=== PATIENT | female | born 1985 | race Caucasian/White ===

== ENCOUNTER 2020-09-04 09:38 | Outpatient (REF) | payer OTHER, SELFPAY ==
[2020-09-04 10:05] LABS: COVID-19 Test Negative (Negative)
== END 2020-09-04 09:39 | disposition home or self-care (01) ==
LOC: HO.EMPCOV 09:38
PROVIDERS: PCP Internal Medicine; Visit Provider Internal Medicine
DX: Z20.828 Contact with and (suspected) exposure to other viral communicable diseases (principal)
CPT/HCPCS: 87635; C9803

== ENCOUNTER 2020-09-07 11:49 | Outpatient (REF) | payer OTHER, SELFPAY ==
[2020-09-07 13:15] LABS: COVID-19 Test Negative (Negative); IDNOW Serial# 55D5AD1C
== END 2020-09-07 11:50 | disposition home or self-care (01) ==
LOC: HO.EMPCOV 11:49
PROVIDERS: PCP Internal Medicine; Visit Provider Internal Medicine
DX: Z20.828 Contact with and (suspected) exposure to other viral communicable diseases (principal)
CPT/HCPCS: 87635; C9803

== ENCOUNTER 2020-09-24 09:51 | Outpatient (REF) | payer OTHER, SELFPAY ==
[2020-09-24 10:11] LABS: COVID-19 Test Negative (Negative)
== END 2020-09-24 09:52 | disposition home or self-care (01) ==
LOC: HO.EMPCOV 09:51
PROVIDERS: Visit Provider Internal Medicine
DX: Z20.828 Contact with and (suspected) exposure to other viral communicable diseases (principal)
CPT/HCPCS: 87635; C9803

== ENCOUNTER 2020-09-28 08:28 | Outpatient (REF) | payer OTHER, SELFPAY ==
[2020-09-28 08:55] LABS: COVID-19 Test Negative (Negative)
== END 2020-09-28 08:29 | disposition home or self-care (01) ==
LOC: HO.EMPCOV 08:28
PROVIDERS: Visit Provider Internal Medicine
DX: Z20.828 Contact with and (suspected) exposure to other viral communicable diseases (principal)
CPT/HCPCS: 87635; C9803

== ENCOUNTER 2020-11-25 13:14 | Outpatient (REF) | payer OTHER, SELFPAY ==
[2020-11-25 13:37] LABS: COVID-19 Test Negative (Negative); IDNOW Serial# 55D5AD1C
== END 2020-11-25 13:15 | disposition home or self-care (01) ==
LOC: HO.LAB 13:14
PROVIDERS: Visit Provider Internal Medicine
DX: Z20.822 Contact with and (suspected) exposure to COVID-19 (principal)
CPT/HCPCS: 36415; 87635; C9803

== ENCOUNTER → 2021-01-11 08:34 | Outpatient (BNVA) | payer OTHER, SELFPAY | PROVIDERS: Visit Provider Internal Medicine | DX: N92.6 Irregular menstruation, unspecified (principal); L68.0 Hirsutism; E55.9 Vitamin D deficiency, unspecified; E04.9 Nontoxic goiter, unspecified; Z87.42 Personal history of other diseases of the female genital tract | CPT/HCPCS: 99202 ==

== ENCOUNTER 2021-01-15 07:57 | Outpatient (REF) | payer OTHER, SELFPAY ==
[2021-01-15 08:50] LABS: Estimated Average Glucose 105 mg/dL; Hemoglobin A1c % 5.3 %
[2021-01-15 08:53] LABS: Glucose Fasting 105 mg/dL (60-99)
[2021-01-15 09:00] LABS: Alanine Aminotransferase 19 U/L (0-31); Albumin Level 3.9 g/dL (3.5-5.0); Alkaline Phosphatase 91 U/L (39-117); Anion Gap 13 (12-20); Aspartate Amino Transferase 14 U/L (5-31); Bilirubin Total 0.2 mg/dL (0.0-1.0); Blood Urea Nitrogen 13 mg/dL (9-16); Calcium 8.5 mg/dL (8.4-10.2); Carbon Dioxide 24 mmol/L (22-29); Chloride 107 mmol/L (96-108); Cholesterol 163 mg/dL; Estimated Glomerular Filt Rate > 60; Glucose Random 105 mg/dL (60-115); HDL Cholesterol 49 mg/dL; LDL Cholesterol Calculated 97 mg/dl; Potassium 4.2 mmol/L (3.3-5.1); Sodium 140 mmol/L (135-145); Triglycerides 88 mg/dL
[2021-01-15 09:22] LABS: Free T4 (Free Thyroxine) 0.93 ng/dL (0.71-1.85); HCG Quantitative < 2 mIU/mL; Vitamin D 25-OH Total 15.9 ng/mL (>30)
[2021-01-15 10:33] LABS: Glucose 1 Hour 159 mg/dL
[2021-01-15 11:22] LABS: Glucose 2 Hour 106 mg/dL
[2021-01-16 10:31] LABS: Follicle Stimulating Hormone 7.1 mIU/mL; Lutenizing Hormone 3.1 mIU/mL; Prolactin 9.1 ng/mL
[2021-01-16 10:57] LABS: LDL Cholesterol Direct 105 mg/dL (<100)
[2021-01-18 21:16] LABS: DHEA Sulfate 223 mcg/dL (23-266); Sex Hormone Binding Globulin 25 nmol/L (17-124)
[2021-01-18 23:41] LABS: Adrenocorticotropic Hormone 12 pg/mL (6-50)
[2021-01-19 18:47] LABS: Estradiol Ultra Sensitive 26 pg/mL
[2021-01-20 17:52] LABS: Testosterone, Free 4.1 pg/mL (0.1-6.4); Testosterone, Total 25 ng/dL (2-45)
[2021-01-20 19:27] LABS: Androstenedione 81 ng/dL
[2021-01-21 14:16] LABS: Estradiol Free 0.63 pg/mL; Estradiol, Ultrasensitive 27 pg/mL
== END 2021-01-15 07:58 | disposition home or self-care (01) ==
LOC: HO.LAB 07:57
PROVIDERS: PCP Internal Medicine; Visit Provider Internal Medicine
DX: N92.6 Irregular menstruation, unspecified (principal); E55.9 Vitamin D deficiency, unspecified
CPT/HCPCS: 36415; 80053; 80061; 82024; 82157; 82306; 82533; 82627; 82670; 82681; 83001; 83002; 83036; 83498; 83721; 84146; 84270; 84402; 84403; 84439; 84443; 84702

== ENCOUNTER 2021-01-26 09:06 | Outpatient (REF) | payer OTHER, SELFPAY ==
--- NOTE | ~2021-01-26 | US_ITS ---
EXAMINATION: US THYROID CLINICAL INFORMATION: Vitamin D deficiency, unspecified COMPARISON: None TECHNIQUE: Linear transducer grayscale and color Doppler examination with attention to the region of the thyroid. FINDINGS: SIZE: Measurements of the thyroid lobes and nodules are given in sagittal, anteroposterior and transverse dimensions respectively. Right Thyroid Lobe: 5.7 x 1.8 x 2.5 cm, volume 13 mL. Parenchyma: The gland echotexture is homogeneous. Thyroid vascularity is normal. Left Thyroid Lobe: 4.5 x 1.9 x 2 cm, volume 8.8 mL. Parenchyma: The gland echotexture is homogeneous. Thyroid vascularity is normal. Isthmus: 0.4 cm in maximum AP dimension. No focal thyroid nodule is seen. NODES: No lymphadenopathy is seen in the tissue surrounding the thyroid gland. US/US thyroid IMPRESSION: Homogeneous thyroid gland demonstrating normal vascularity. No discrete thyroid nodules visualized.
== END 2021-01-26 09:07 | disposition home or self-care (01) ==
LOC: HO.US 09:06
PROVIDERS: Visit Provider Internal Medicine
DX: E04.9 Nontoxic goiter, unspecified (principal); E55.9 Vitamin D deficiency, unspecified
CPT/HCPCS: 76536

== ENCOUNTER → 2021-03-08 07:55 | Outpatient (BNVA) | payer OTHER, SELFPAY | PROVIDERS: Visit Provider Internal Medicine ==

== ENCOUNTER 2021-04-02 07:54 | Outpatient (REF) | payer OTHER, SELFPAY ==
[2021-04-05 22:46] LABS: Adrenocorticotropic Hormone <5 pg/mL (6-50)
[2021-04-06 15:17] LABS: Dexamethasone 463 ng/dL
== END 2021-04-02 07:55 | disposition home or self-care (01) ==
LOC: HO.LAB 07:54
PROVIDERS: Visit Provider Internal Medicine
DX: L68.0 Hirsutism (principal)
CPT/HCPCS: 36415; 80299; 82024; 82533

== ENCOUNTER → 2021-04-14 10:56 | Outpatient (BNVA) | payer OTHER, SELFPAY | PROVIDERS: Visit Provider Internal Medicine ==

== ENCOUNTER 2022-06-02 12:55 | Outpatient (REF) | payer OTHER, SELFPAY ==
--- NOTE | ~2022-06-02 | US_ITS ---
EXAMINATION: US LOWER EXTREMITY VENOUS (REFLUX EXAM), BILATERAL CLINICAL INDICATION: Chronic venous insufficiency with bilateral extremity varicose veins COMPARISON: Ultrasound from 06/11/2019 TECHNIQUE: Color flow triplex imaging and compression Doppler was performed to evaluate both the deep and the superficial systems bilaterally. To evaluate the superficial system, the examination was performed in the upright position. Color-flow Doppler ultrasound and compression ultrasound were utilized. In addition, maneuvers were utilized to demonstrate reflux. FINDINGS: 1. DEEP VENOUS ULTRASOUND OF THE RIGHT LOWER EXTREMITY: Common Femoral Vein: Compressible, normal respiratory variation and augmented flow. Femoral Vein: Compressible, normal color flow and augmentation. Popliteal Vein: Compressible, normal augmentation. Deep Reflux: There is no evidence of reflux in the deep system in either the common femoral vein or the popliteal vein. There is no evidence of a Feliciano's cyst. 2. SUPERFICIAL ULTRASOUND WITH DOPPLER OF RIGHT LOWER EXTREMITY: GREAT SAPHENOUS VEIN: Saphenofemoral Junction: 0.7 cm; Reflux: 0 ms Proximal Thigh: 0.5 cm; Reflux: 0 ms Mid Thigh: 0.3 cm; Reflux: 1156 ms Above Knee: 0.3 cm; Reflux: 0 ms At Knee: 0.3 cm; Reflux: 0 ms Below Knee: 0.4 cm; Reflux: 0 ms Mid Calf: 0.3 cm; Reflux: 0 ms Ankle: 0.3 cm; Reflux: 0 ms DUPLICATED MEDIAL GREAT SAPHENOUS VEIN: Diameter: None Imaged Reflux: NA DUPLICATED LATERAL GREAT SAPHENOUS VEIN: Diameter: None Imaged Reflux: NA SMALL SAPHENOUS VEIN: Proximal: 0.4 cm; Reflux: 0 ms Distal: 0.2 cm; Reflux: 0 ms VEIN OF GIACOMINI: None Imaged. PERFORATORS: Location: None Imaged Size: NA Reflux: NA VARICOSITIES: Location: None Imaged Size: NA Reflux: NA 3. DEEP VENOUS ULTRASOUND OF THE LEFT LOWER EXTREMITY: Common Femoral Vein: Compressible, normal respiratory variation and augmented flow. Femoral Vein: Compressible, normal color flow and augmentation. Popliteal Vein: Compressible, normal augmentation. Deep Reflux: There is no evidence of reflux in the deep system in either the common femoral vein or the popliteal vein. There is no evidence of a Feliciano's cyst. 4. SUPERFICIAL ULTRASOUND WITH DOPPLER OF LEFT LOWER EXTREMITY: GREAT SAPHENOUS VEIN: Saphenofemoral Junction: 0.9 cm; Reflux: 0 ms Proximal Thigh: 0.5 cm; Reflux: 0 ms Mid Thigh: 0.4 cm; Reflux: 488 ms Above Knee: 0.4 cm; Reflux: 0 ms At Knee: 0.3 cm; Reflux: 0 ms Below Knee: 0.2 cm; Reflux: 0 ms Mid Calf: 0.3 cm; Reflux: 0 ms Ankle: 0.3 cm; Reflux: 0 ms DUPLICATED MEDIAL GREAT SAPHENOUS VEIN: Diameter: 0.6 cm Reflux: None DUPLICATED LATERAL GREAT SAPHENOUS VEIN: Diameter: None Imaged Reflux: NA SMALL SAPHENOUS VEIN: Proximal: 0.2 cm; Reflux: 0 ms Distal: 0.2 cm; Reflux: 0 ms VEIN OF GIACOMINI: None Imaged. PERFORATORS: Location: None Imaged Size: NA Reflux: NA VARICOSITIES: Location: Proximal thigh Size: 0.3 cm Reflux: NA US/US venous duplex LE BI IMPRESSION: Right: No significant reflux in the right lower extremity except for a focal area of moderate reflux in the great saphenous vein which is unlikely to be clinically significant Left: No significant reflux in the left lower extremity
== END 2022-06-02 12:56 | disposition home or self-care (01) ==
LOC: HO.US 12:55
PROVIDERS: Visit Provider Surgery Vascular Surgery
DX: I83.893 Varicose veins of bilateral lower extremities with other complications (principal)
CPT/HCPCS: 93970

== ENCOUNTER 2023-08-02 08:13 | Outpatient (AMB) | payer OTHER, SELFPAY ==
--- NOTE | 2023-08-02 08:14 | MHC.OFFVIS ---
Intake Vital Signs 08/02/23 08:22 Height 5 ft 7 in Weight 244 lb 7.882 oz BMI 38.3 BP 114/66 Blood Pressure Location Rt brachial Position Sitting Pulse 87 Pulse Source Pulse Oximeter Temp 97.3 F Temp Source Skin Pulse Oximetry (%) 99 Oxygen Delivery Method Room Air Intake Visit Reasons: FM Intake Note: New patient presenting today for fibromyalgia. 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 The condition started over the last year. She stated that she has had aches and pains for a long period of time but recently they have become worse. She had some stressors in her life recently that she believes contributed to her symptoms. The majority of her pain is in her arm, upper back, neck. Intermittently she gets an electric shock-like sensation in her elbows, with certain positions. Patient sometimes sleeps 8 hours at night but wakes up fatigued. Sometimes she gets the urge to move her legs. She denies any swollen joints. She is unaware of any family history of an autoimmune rheumatic disease. [facility] Medical History (Updated 08/02/23 @ 08:55 by Bridgett Bang MD) Acute allergic rhinitis Iron deficiency anemia, unspecified PCOS (polycystic ovarian syndrome) Impaired glucose tolerance Prediabetes Obesity Goiter Vitamin D deficiency History of abnormal cervical Pap smear Irregular menses Hirsutism Surgical History Hx of eye surgery Hx of tubal ligation Family History Father Type 2 diabetes mellitus Hypertension COPD (chronic obstructive pulmonary disease) Mother Type 2 diabetes mellitus Maternal Grandmother Type 2 diabetes mellitus Heart disease Breast cancer Paternal Grandmother Alzheimer's dementia Social History Household Members: Significant Other and Children Alcohol intake: current Alcohol intake frequency: a few times a month Patient Tobacco Use Status: Never used Tobacco Current occupational status: employed 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 Female Reproductive History Menstrual Total pregnancies: 3 Number of Living Children: 2 Ab spontaneous: 1 Review of Systems Const Reports fatigue, Reports headache(s) and Reports weakness Eyes Reports diplopia ENT Reports dizziness and Reports headache(s) Card Reports chest pain and Reports dyspnea Resp Reports dyspnea GI Reports constipation Musc Reports arthralgias, Reports muscle weakness and Reports stiffness Neuro Reports dizziness, Reports headache(s), Reports memory loss, Reports restless legs and Reports weakness Psych Reports anxiety and Reports memory loss Endo Reports fatigue Physical Exam Vital Signs: Last Vital Signs Temp 97.3 F 08/02/23 08:22 Pulse 87 08/02/23 08:22 BP 114/66 08/02/23 08:22 Pulse Ox 99 08/02/23 08:22 Oxygen Delivery Method Room Air 08/02/23 08:22 BMI result Body Mass Index 38.3 Const General: cooperative, healthy appearing and comfortable Nutritional Appearance: obese Orientation/consciousness: patient oriented x3 Limitations: no limitations HEENT Head: Yes normocephalic and Yes atraumatic Mouth: moist mucous membranes Resp Effort & Inspection: normal respiratory effort and able to speak in complete sentences Auscultation: clear to auscultation bilaterally Cardio Rate: regular rate Rhythm: regular rhythm Heart sounds: S1 normal heart sound present GI Inspection: No distended Palpation (GI): Soft to palpation and nontender Skin General skin exam: no rashes or lesions noted Neuro General: patient oriented x3 Extrem Other: No fibromyalgia tender points today No active synovitis Normal nailfold capillaroscopy Normal range of motion of hands, fingers, wrists, elbows and shoulders without pain Negative straight leg raise test Results Reviewed Results Reviewed: Labs 06/2023 RF/MARIYA negative ESR 10 Lyme screen negative Assessment & Plan Assessment & Plan (1) Fibromyalgia, primary: Code(s): M79.7 - Fibromyalgia Plan: This is a 37-year-old female who presents for evaluation of diffuse pain. I do not see any evidence of an autoimmune rheumatic disease upon my evaluation. Clinical picture consistent with fibromyalgia Discussed management of fibromyalgia with patient. Is a noninflammatory, non-autoimmune central afferent processing disorder leading to a diffuse pain syndrome. I suggested that patient try to address her underlying psychiatric issues, anxiety/depression. Patient sees a therapist once a month. I suggested weekly or ever other week evaluation. Consider evaluation by psychiatrista. Discussed a referral for sleep study by her PCP to evaluate for EYAD. Try to follow sleep hygiene practices. Patient would benefit from increased physical activity, patient walks about 20 minutes daily. Advised patient to continue walking, she likes to do Hilario which I suggested she does regularly. Follow-up in 4 months (2) Iron deficiency anemia, unspecified: Code(s): D50.9 - Iron deficiency anemia, unspecified Qualifiers: Iron deficiency anemia type: chronic blood loss Qualified Code(s): D50.0 - Iron deficiency anemia secondary to blood loss (chronic) Plan: I explained to patient that iron deficiency anemia can sometimes lead to restless legs syndrome which can affect her sleep and contribute to her fibromyalgia symptoms. Follow-up with PCP Plan I spent 46 minutes reviewing patient's chart, evaluating patient, counseling patient and documenting in the chart Coding Level of Care Code New Pt Level 4 (18406) Diagnoses Fibromyalgia, primary M79.7 Iron deficiency anemia due to chronic blood loss D50.0 Iron deficiency anemia type: chronic blood loss
[2023-08-02 08:22] VITALS: BP 114/66; PULSE 87; TEMP 36.3; O2SAT 99; BMI 38.3
== END 2023-08-02 08:55 | disposition home or self-care (01) ==
PROVIDERS: PCP Internal Medicine; Visit Provider Student in an Organized Health Care Education/Training Program
DX: M79.7 Fibromyalgia (principal); D50.0 Iron deficiency anemia secondary to blood loss (chronic)
CPT/HCPCS: 99204

== ENCOUNTER → 2023-08-02 08:13 | Outpatient (BNVA) | payer OTHER, SELFPAY | PROVIDERS: PCP Internal Medicine; Visit Provider Student in an Organized Health Care Education/Training Program ==

== ENCOUNTER → 2023-09-25 12:31 | Outpatient (BNVA) | payer OTHER, SELFPAY | PROVIDERS: PCP Internal Medicine; Visit Provider Physician Assistant Medical | DX: Z13.89 Encounter for screening for other disorder (principal) | CPT/HCPCS: 99203 ==

== ENCOUNTER 2023-09-27 08:16 | Outpatient (AMB) | payer OTHER, SELFPAY ==
--- NOTE | 2023-09-27 08:20 | A.OFFVIS_ITS ---
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 Reports soreness and increase of pain. Seen at work connection where she was given a aircast. Currently states pain and swelling has improved. 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 She was seen at work [facility] where she was given a air cast. She states she has swelling, soreness and worsening pain in her foot. Her pain and swelling have currently improved. 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 [facility] Medical History (Updated 09/27/23 @ 10:39 by Vesna Lomeli PA-C) Acute allergic rhinitis Iron deficiency anemia, unspecified PCOS (polycystic ovarian syndrome) Impaired glucose tolerance Prediabetes Obesity Goiter Vitamin D deficiency History of abnormal cervical Pap smear Irregular menses Hirsutism Surgical History Hx of eye surgery Hx of tubal ligation Family History Father Type 2 diabetes mellitus Hypertension COPD (chronic obstructive pulmonary disease) Mother Type 2 diabetes mellitus Maternal Grandmother Type 2 diabetes mellitus Heart disease Breast cancer Paternal Grandmother Alzheimer's dementia Social History (Updated 09/27/23 @ 08:44 by LUI SE Perales) Household Members: Significant Other and Children Alcohol intake: current Alcohol intake frequency: a few times a month Patient Tobacco Use Status: Never used Tobacco Current occupational status: employed 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 Review of Systems Const All systems reviewed & are unremarkable except as noted in HPI and below Physical Exam Vital Signs: BMI result Body Mass Index 38.2 Const General: cooperative, healthy appearing, comfortable, no acute distress, well developed and alert Orientation/consciousness: patient oriented x3 HEENT Head: Yes normal to inspection, Yes normocephalic and Yes atraumatic Eyes General: appearance normal, both eyes and all related structures Resp Effort & Inspection: normal respiratory effort and able to speak in complete sentences Cardio Rate: regular rate Peripheral pulses: Peripheral pulses 2+ throughout GI Palpation (GI): Soft to palpation Skin Lesions: no lesions Rashes: no rashes Neuro General: patient oriented x3 Extrem Other: Left foot: Normal to inspection. Mild swelling over lateral aspect of the foot which extends to the top of foot with tenderness to palpation. She has full ROM of ankle without pain or crepitus. No tenderness or pain over medial or latera malleolus. No pain along the syndesmosis. NVI. Results Reviewed Results Reviewed: x Assessment & Plan Assessment & Plan (1) Sprain of foot, left: Code(s): S93.602A - Unspecified sprain of left foot, initial encounter Qualifiers: Encounter type: initial encounter Qualified Code(s): S93.602A - Unspecified sprain of left foot, initial encounter Plan She was placed in a short boot weight bearing as tolerated which she will wear for the next 2-3 weeks to help with pain. I encouraged her to come out of the boot for gentle ROM exercises. She can remove the boot for hygiene and sleeping. She will begin physical therapy over the next 2 weeks to work on gentle ROM, strengthening and proprioceptive training. She will remain out of work till October 02 at which point she can return on light duty which would consist of no continuous standing. I would like to see her back in 6 weeks for a follow-up, sooner if needed. Orders: Orders PT Evaluation and Treatment Today S93.602A - Unspecified sprain of left foot, initial encounter Patient Instructions: Scribed for Vesna Lomeli PA-C, by Derrell Lynne product manager medical device, on 09/27/2023 at 8:30 AM EST. I, Vesna Lomeli PA-C, have personally reviewed and agree with the information entered by the scribe. Coding Level of Care Code New Pt Level 3 (99748) Diagnoses Sprain of left foot, initial encounter S93.602A Encounter type: initial encounter
[2023-09-27 08:30] VITALS: BMI 38.2
== END 2023-09-27 09:23 | disposition home or self-care (01) ==
PROVIDERS: PCP Internal Medicine; Visit Provider Physician Assistant
DX: S93.602A Unspecified sprain of left foot, initial encounter (principal)
CPT/HCPCS: 99203

== ENCOUNTER → 2023-09-27 08:16 | Outpatient (BNVA) | payer OTHER, SELFPAY | PROVIDERS: PCP Internal Medicine; Visit Provider Physician Assistant | DX: S93.602A Unspecified sprain of left foot, initial encounter (principal) | CPT/HCPCS: 99202 ==

== ENCOUNTER → 2023-09-29 11:19 | Outpatient (BNVA) | payer OTHER, SELFPAY | PROVIDERS: PCP Internal Medicine; Visit Provider Physician Assistant | DX: Z13.89 Encounter for screening for other disorder (principal) | CPT/HCPCS: 99213 ==

== ENCOUNTER → 2023-10-30 10:19 | Outpatient (BNVA) | payer OTHER, SELFPAY | PROVIDERS: PCP Internal Medicine; Visit Provider Internal Medicine | DX: Z13.89 Encounter for screening for other disorder (principal) | CPT/HCPCS: 99213 ==

== ENCOUNTER 2023-11-06 14:55 | Outpatient (AMB) | payer OTHER, SELFPAY ==
--- NOTE | 2023-11-06 15:23 | A.OFFVIS_ITS ---
Intake Vital Signs 11/06/23 15:24 Height 5 ft 7 in Weight 253 lb BMI 39.6 BP 128/76 Blood Pressure Location Rt brachial Position Sitting Intake Visit Reasons: ENP-Forgetfulness/Memory changes x2 yrs/Migraine-C Intake Note: Patient presents for forgetfulness,memory and migraines. I've always had migraines on and off for years,the forgetfulness have gotten more noticeable for the past 2 years mid conversation I forget what I was going to say. Allergies No Known Allergies Allergy (Verified 11/06/23 15:29) Medication List - Last Reconciled 11/06/23 by ANTHONY De Leon ergocalciferol (vitamin D2) 1,250 mcg PO QWEEK ferrous sulfate 325 mg PO DAILY ibuprofen 800 mg PO TID PRN HPI HPI Comments History of Present Illness Details Right-handed 38-yr-old female presents for new pt evaluation of cognitive difficulties and headaches. She reports that she has had worsening cognitive difficulties over the past 2 yrs. She notes that she is losing her train of thought mid-sentence. She needs to write everything down so she does not forget to do it. Often second guesses if she has done something- ie turning the light or roofer helper vinyl coating off. She is having difficulty recalling long-term memories- such as when her 18 yo old son was younger. She can space out at times. 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 She is not overly active- does take daily walks on her lunch break. She is prone to forgetting to pay her bills- now puts everything on auto-pay. She is prone to procrastination, at least since young adulthood. Prone to being late- has a tendency to drive fast when late- has had traffic citation for this. Prone to misplacing things. Generally denies risk taking behaviors. She recalls spacing out when listening to her teachers talk when in school- hearing them but not absorbing the info. Now this happens while reading. Sleeps ok- can wake up at times to void/drink and have difficulties getting back to sleep. Usually ready for bed by 8pm, but can wake up unrefreshed. Does snore. Endorses excessive daytime sleepiness. She does have RLS- legs start jumping, tingling, restlessness, has to get up, creepy crawling sensation, leg cramps. She has depression and anxiety- feels well-controlled. Was seeing a therapist- was worse in early 2022 d/t stress. Pt reports normal gestational and early development. She states she was a good student. Completed high school and a MA program. She is anxious about this as she has a family history of AD- her mother tells her 59 yo father does put things in places they do not go, but does not have a cognitive d/o dx, her paternal grandmother had AD- unsure of age but maybe older onset; her paternal grandfather- dx'd w/ dementia (un-sure of specific sub-type) in [place] at age 87-88 yo- still alive. She also endorses Fibromyalgia, PCOS, some constipation/diarrhea. Denies h/o significant neck/back issues, concussions, resp d/o, CV d/o, coagulationd/o, seizure. Headache questionnaire: Typical headache characteristics: Prodrome symptoms? Unsure Aura? Blurry, double vision, snow flurries- before and during the headache. Location, quality, characteristics? Dull headache in top of head. Occasional temporal pain. Pain intensity? Mild-mod. In the past, was severe. Associated symptoms? photophobia, phonophobia, nausea, sometimes vomiting, allodynia, brain fog, activity intolerance. Focal weakness, Parethesias, Autonomic s/s? bilateral eye droop. Postdrome? Lingers some. Triggers? Stress Any positional, valsalva, exertional, sexual activity triggers? none Menstrual triggers? can have headache just before her menses- menses is regular. Time of day? no specific time of day- but often notices at work Duration? 1-2 days Frequency? 1-2, at most 3-4 days of mild-mod attacks per week, last severe attack was > 6 months ago. How does headache impact your life? tries not to miss work- work tries to accommodate by reducing light exposure. Current acute medication use/interventions: Rarely Naproxen or Zofran 4mg ODT tab. Previous acute medication use: Sumatriptan- unsure of effect Current preventative medication use: None Previous preventative medication use: Unsure Non-pharmacological interventions: Puts her head down. Family planning? None- s/p tubal ligation. Family history of migraine or other headache disorder? dtr has migraine [facility] Medical History (Updated 11/06/23 @ 17:10 by ANTHONY De Leon) Acute allergic rhinitis Iron deficiency anemia, unspecified PCOS (polycystic ovarian syndrome) Impaired glucose tolerance Prediabetes Obesity Goiter Vitamin D deficiency History of abnormal cervical Pap smear Irregular menses Hirsutism Surgical History Hx of eye surgery Hx of tubal ligation Family History Father Type 2 diabetes mellitus Hypertension COPD (chronic obstructive pulmonary disease) Mother Type 2 diabetes mellitus Maternal Grandmother Type 2 diabetes mellitus Heart disease Breast cancer Paternal Grandmother Alzheimer's dementia Social History Household Members: Significant Other and Children Alcohol intake: current Alcohol intake frequency: a few times a month Patient Tobacco Use Status: Never used Tobacco Current occupational status: employed 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 Mallampatti stae IV Large Tonsils Head: Yes normocephalic Resp Effort & Inspection: normal respiratory effort and able to speak in complete sentences Neuro General: patient oriented x3 Cranial nerves: Yes CN's II-XII intact bilaterally Cognition (Neuro): normal cognition Gait exam (Neuro): Normal gait present Motor exam (neuro): 5/5 motor strength present throughout Deep tendon reflexes (DTR's): Right triceps reflex intensity grade: 2+, Left triceps reflex intensity grade: 2+, Rt Biceps (C5, C6): 2+, Left biceps reflex intensity grade: 2+, Right brachioradialis reflex intensity grade: 2+, Left brachioradialis reflex intensity grade: 2+, Right patellar reflex intensity grade: 2+ and Left patellar reflex intensity grade: 2+ Coordination: [id number] test normal Pupils: Normal pupillary reactivity/response: bilateral Psych Appearance: grossly normal Mental Status: mental status grossly normal Speech and movement: Normal speech and movement present Affect: normal affect Attitude: cooperative Thought process: Normal thought process present Assessment & Plan Assessment & Plan (1) Cognitive dysfunction: Code(s): F09 - Unspecified mental disorder due to known physiological condition (2) Iron deficiency anemia, unspecified: Code(s): D50.9 - Iron deficiency anemia, unspecified Qualifiers: Iron deficiency anemia type: chronic blood loss Qualified Code(s): D50.0 - Iron deficiency anemia secondary to blood loss (chronic) (3) Headache: Code(s): R51.9 - Headache, unspecified (4) Diplopia: Code(s): H53.2 - Diplopia (5) Ptosis, bilateral: Code(s): H02.403 - Unspecified ptosis of bilateral eyelids (6) Excessive daytime sleepiness: Code(s): G47.19 - Other hypersomnia (7) Sleep difficulties: Code(s): G47.9 - Sleep disorder, unspecified (8) Snoring: Code(s): R06.83 - Snoring (9) RLS (restless legs syndrome): Code(s): G25.81 - Restless legs syndrome Plan Cognitiove difficulties may be multi-factorial. Patient is advised to undergo: Labs to assess for secondary etiologies of cognitive dysfunction, headaches, the ptosis, diplopia, and restless leg symptoms HST to assess for sleep apnea Brain MRI with and without contrast to assess for secondary etiologies of cognitive dysfunction, bilateral ptosis, diplopia EEG to assess for epileptic activity Upon review, consider referral for psychiatric eval for ? undiagnosed ADD vs mood d/o impact on cognition. For overall headache management: Discussed importance of good self-care, including but not limited to maintaining a healthy diet, adequate fluid intake, adequate sleep, and engaging in regular physical activity. For headache triggers: Track headaches. For acute headache treatment: Discussed importance of taking acute medications at the first sign of headache, however stressed importance of avoiding acute medication overuse (especially with combined headache medications). Trial Sumatriptan 100mg tab, 1/2 - 1 tab (50-100mg) at onset of headache, may repeat in 2 hours. Max of 2 tabs (200mg) per 24 hours. May adjunct with OTC Naproxen liquigels 440mg q 12 hrs prn. Reviewed potential adverse effects of triptans, including but not limited to nausea, fatigue, chest tightness/tingling (usually passes within a few minutes), medication overuse headaches. Previous acute migraine medication trials: Unsure Acute migraine medication contraindications: None at this time For headache prevention medication: Start Riboflavin 400mg qam Start Magnesium 400mg qhs Previous migraine prevention medication trials: None Migraine prevention medication contraindications: None Pt to follow-up in 2 months or sooner prn. Orders: Orders TSH reflex Free T4 Today D50.9 - Iron deficiency anemia, unspecified, E66.9 - Obesity, unspecified, H02.403 - Unspecified ptosis of bilateral eyelids, H53.2 - Diplopia, R51.9 - Headache, unspecified, R73.02 - Impaired glucose tolerance (oral) MARIYA Reflex Titer and Pattern Today D50.9 - Iron deficiency anemia, unspecified, E66.9 - Obesity, unspecified, H02.403 - Unspecified ptosis of bilateral eyelids, H53.2 - Diplopia, R51.9 - Headache, unspecified, R73.02 - Impaired glucose tolerance (oral) Methylmalonic Acid Today D50.9 - Iron deficiency anemia, unspecified, E66.9 - Obesity, unspecified, H02.403 - Unspecified ptosis of bilateral eyelids, H53.2 - Diplopia, R51.9 - Headache, unspecified, R73.02 - Impaired glucose tolerance (oral) Erythrocyte Sedimentation Rate Today D50.9 - Iron deficiency anemia, unspecified, E66.9 - Obesity, unspecified, H02.403 - Unspecified ptosis of bilateral eyelids, H53.2 - Diplopia, R51.9 - Headache, unspecified, R73.02 - Impaired glucose tolerance (oral) Acetylcholine Recept. Blocking Today D50.9 - Iron deficiency anemia, unspecified, E66.9 - Obesity, unspecified, H02.403 - Unspecified ptosis of bilateral eyelids, H53.2 - Diplopia, R51.9 - Headache, unspecified, R73.02 - Impaired glucose tolerance (oral) Acetylcholine Trading Specialist Modulating Today D50.9 - Iron deficiency anemia, unspecified, E66.9 - Obesity, unspecified, H02.403 - Unspecified ptosis of bilateral eyelids, H53.2 - Diplopia, R51.9 - Headache, unspecified, R73.02 - Impaired glucose tolerance (oral) Hemoglobin A1c Today D50.9 - Iron deficiency anemia, unspecified, E66.9 - Obesity, unspecified, H02.403 - Unspecified ptosis of bilateral eyelids, H53.2 - Diplopia, R51.9 - Headache, unspecified, R73.02 - Impaired glucose tolerance (oral) Ferritin Today D50.9 - Iron deficiency anemia, unspecified, E66.9 - Obesity, unspecified, H02.403 - Unspecified ptosis of bilateral eyelids, H53.2 - Diplopia, R51.9 - Headache, unspecified, R73.02 - Impaired glucose tolerance (oral) Creatine Kinase Total Today D50.9 - Iron deficiency anemia, unspecified, E66.9 - Obesity, unspecified, H02.403 - Unspecified ptosis of bilateral eyelids, H53.2 - Diplopia, R51.9 - Headache, unspecified, R73.02 - Impaired glucose tolerance (oral) EEG electroencephalogram Today F09 - Unspecified mental disorder due to known physiological condition RT home sleep study Today G47.19 - Other hypersomnia, G47.9 - Sleep disorder, unspecified, R06.83 - Snoring Vitamin B12 and Folate Today D50.9 - Iron deficiency anemia, unspecified, E66.9 - Obesity, unspecified, H02.403 - Unspecified ptosis of bilateral eyelids, H53.2 - Diplopia, R51.9 - Headache, unspecified, R73.02 - Impaired glucose tolerance (oral) Rheumatoid Factor Today D50.9 - Iron deficiency anemia, unspecified, E66.9 - Obesity, unspecified, H02.403 - Unspecified ptosis of bilateral eyelids, H53.2 - Diplopia, R51.9 - Headache, unspecified, R73.02 - Impaired glucose tolerance (oral) Complete Blood Count Auto Diff Today D50.9 - Iron deficiency anemia, unspecified, E66.9 - Obesity, unspecified, H02.403 - Unspecified ptosis of bilateral eyelids, H53.2 - Diplopia, R51.9 - Headache, unspecified, R73.02 - Impaired glucose tolerance (oral) Comprehensive Met. Panel Today D50.9 - Iron deficiency anemia, unspecified, E66.9 - Obesity, unspecified, H02.403 - Unspecified ptosis of bilateral eyelids, H53.2 - Diplopia, R51.9 - Headache, unspecified, R73.02 - Impaired glucose tolerance (oral) Homocysteine Today D50.9 - Iron deficiency anemia, unspecified, E66.9 - Obesity, unspecified, H02.403 - Unspecified ptosis of bilateral eyelids, H53.2 - Diplopia, R51.9 - Headache, unspecified, R73.02 - Impaired glucose tolerance (oral) Acetylcholine Receptor Binding Today D50.9 - Iron deficiency anemia, unspecified, E66.9 - Obesity, unspecified, H02.403 - Unspecified ptosis of bilateral eyelids, H53.2 - Diplopia, R51.9 - Headache, unspecified, R73.02 - Impaired glucose tolerance (oral) IRON PROFILE Today D50.9 - Iron deficiency anemia, unspecified, E66.9 - Obesity, unspecified, H02.403 - Unspecified ptosis of bilateral eyelids, H53.2 - Diplopia, R51.9 - Headache, unspecified, R73.02 - Impaired glucose tolerance (oral) CRP High Sensitivity Today D50.9 - Iron deficiency anemia, unspecified, E66.9 - Obesity, unspecified, H02.403 - Unspecified ptosis of bilateral eyelids, H53.2 - Diplopia, R51.9 - Headache, unspecified, R73.02 - Impaired glucose tolerance (oral) MR head/brain wo/w con Today F09 - Unspecified mental disorder due to known physiological condition, H02.403 - Unspecified ptosis of bilateral eyelids, H53.2 - Diplopia, R51.9 - Headache, unspecified Medications: New sumatriptan succinate (0.5 - 1 x 100 mg) 50 - 100 mg orally at onset of headache, may repeat in 2 hrs PRN; max 2 tabs per day or 4 tabs/week (may take with Naproxen) 30 days 12 tabs 6RF migraine headache riboflavin (vitamin B2) 400 mg PO DAILY 30 days 30 tabs 6RF magnesium oxide may hold for loose stools 400 mg PO BEDTIME 30 days 30 tabs 6RF ondansetron 4 - 8 mg (1 - 2 x 4 mg) PO Q6-8H 30 days PRN 30 tabs 1RF nausea and vomiting MDD 4 tabs Coding Level of Care Code New Pt Level 4 (44596) Diagnoses Cognitive dysfunction F09 Iron deficiency anemia due to chronic blood loss D50.0 Iron deficiency anemia type: chronic blood loss Headache R51.9 Diplopia H53.2 Ptosis, bilateral H02.403 Excessive daytime sleepiness G47.19 Sleep difficulties G47.9 Snoring R06.83 RLS (restless legs syndrome) G25.81
[2023-11-06 15:24] VITALS: BP 128/76; BMI 39.6
== END 2023-11-06 16:00 ==
PROVIDERS: PCP Internal Medicine; Visit Provider Nurse Practitioner Family
DX: R41.89 Other symptoms and signs involving cognitive functions and awareness (principal); D50.0 Iron deficiency anemia secondary to blood loss (chronic); R51.9 Headache, unspecified; H53.2 Diplopia; H02.403 Unspecified ptosis of bilateral eyelids; G47.19 Other hypersomnia; G47.9 Sleep disorder, unspecified; R06.83 Snoring; G25.81 Restless legs syndrome
CPT/HCPCS: 99204

== ENCOUNTER → 2023-11-06 14:55 | Outpatient (BNVA) | payer OTHER, SELFPAY | PROVIDERS: PCP Internal Medicine; Visit Provider Nurse Practitioner Family ==

== ENCOUNTER 2023-11-08 09:31 | Outpatient (AMB) | payer OTHER, SELFPAY ==
--- NOTE | 2023-11-08 09:37 | MHC.OFFVIS ---
Intake Vital Signs 11/08/23 09:40 Height 5 ft 7 in Weight 253 lb BMI 39.6 Intake Visit Reasons: OV-f/u left foot sprain-follow up Intake Note: Charlene a 38 year old female presents today for a follow up of left foot sprain. Patient reports pain has improved, states she she started PT last week due to office rescheduling. Occasional stiffness, soreness, and tingling. She will use an bridgett wrap prn. States not needing ibuprofen for the past 2 weeks. Allergies No Known Allergies Allergy (Verified 11/08/23 09:44) HPI OV-f/u left foot sprain-follow up HPI Details 38-year-old female who returns to the office today for a follow-up of left foot pain. She states she has improvement in her pain but she does c/o occasional stiffness soreness and tingling sensation in her foot. Her pain is aggravated with putting on shoes. She has started physical therapy last week. She uses an bridgett wrap as needed. She has not taken ibuprofen for the past 2 weeks. [facility] Medical History (Updated 11/06/23 @ 17:10 by ANTHONY De Leon) Acute allergic rhinitis Iron deficiency anemia, unspecified PCOS (polycystic ovarian syndrome) Impaired glucose tolerance Prediabetes Obesity Goiter Vitamin D deficiency History of abnormal cervical Pap smear Irregular menses Hirsutism Surgical History Hx of eye surgery Hx of tubal ligation Family History Father Type 2 diabetes mellitus Hypertension COPD (chronic obstructive pulmonary disease) Mother Type 2 diabetes mellitus Maternal Grandmother Type 2 diabetes mellitus Heart disease Breast cancer Paternal Grandmother Alzheimer's dementia Social History Household Members: Significant Other and Children Alcohol intake: current Alcohol intake frequency: a few times a month Patient Tobacco Use Status: Never used Tobacco Current occupational status: employed 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 Review of Systems Const All systems reviewed & are unremarkable except as noted in HPI and below Physical Exam Vital Signs: BMI result Body Mass Index 39.6 Const General: cooperative, healthy appearing, comfortable, no acute distress, well developed and alert Orientation/consciousness: patient oriented x3 HEENT Head: Yes normal to inspection, Yes normocephalic and Yes atraumatic Eyes General: appearance normal, both eyes and all related structures Resp Effort & Inspection: normal respiratory effort and able to speak in complete sentences Cardio Rate: regular rate Peripheral pulses: Peripheral pulses 2+ throughout GI Palpation (GI): Soft to palpation Skin Lesions: no lesions Rashes: no rashes Neuro General: patient oriented x3 Extrem Other: Left foot: Normal to inspection. No swelling noted. She has mild tenderness to palpation on the top of the foot. She has full ROM of ankle without pain or crepitus. No tenderness or pain over medial or latera malleolus. No pain along the syndesmosis. NVI. Assessment & Plan Assessment & Plan (1) Sprain of foot, left: Code(s): S93.602A - Unspecified sprain of left foot, initial encounter Qualifiers: Encounter type: initial encounter Qualified Code(s): S93.602A - Unspecified sprain of left foot, initial encounter Plan She will continue working on physical therapy for her ankle and increase activity as tolerated. If symptoms persist or worsens, patient will contact the office, otherwise follow-up as needed. Patient Instructions: Scribed for Vesna Lomeli PA-C, by Derrell Lynne medical staff assistant, on 11/08/2023 at 9:30 AM LALO. Vesna Gonsalez PA-C, have personally reviewed and agree with the information entered by the scribe. Coding Level of Care Code Est Pt Level 3 (10432) Diagnoses Sprain of left foot, initial encounter S93.602A Encounter type: initial encounter
[2023-11-08 09:40] VITALS: BMI 39.6
== END 2023-11-08 10:06 | disposition home or self-care (01) ==
PROVIDERS: PCP Internal Medicine; Visit Provider Physician Assistant
DX: S93.602A Unspecified sprain of left foot, initial encounter (principal)
CPT/HCPCS: 99213

== ENCOUNTER → 2023-11-08 09:31 | Outpatient (BNVA) | payer OTHER, SELFPAY | PROVIDERS: PCP Internal Medicine; Visit Provider Physician Assistant | DX: S93.602A Unspecified sprain of left foot, initial encounter (principal) | CPT/HCPCS: 99212 ==

== ENCOUNTER → 2023-11-22 09:58 | Outpatient (BNVA) | payer OTHER, SELFPAY | PROVIDERS: PCP Internal Medicine; Visit Provider Internal Medicine | DX: Z13.89 Encounter for screening for other disorder (principal) | CPT/HCPCS: 99213 ==

== ENCOUNTER 2023-11-23 07:34 | Outpatient (REF) | payer OTHER, SELFPAY ==
--- NOTE | ~2023-11-23 | MR_ITS ---
EXAMINATION: MR BRAIN WITH AND WITHOUT CONTRAST CLINICAL INFORMATION: Ptosis, headache and diplopia COMPARISON: None. TECHNIQUE: MRI of the brain was obtained using routine sequences before and following administration of intravenous contrast. A total of 10 mL of Gadavist was administered intravenously. FINDINGS: No acute infarct. The GRE sequence is without susceptibility artifact to suggest acute or chronic blood products. No extra-axial fluid collection. The ventricles and sulci are normal in size and configuration without significant volume loss or hydrocephalus. There are a few nonspecific T2 FLAIR hyperintense foci in the subcortical white matter in the frontal lobes and single lesion in the left posterior putamen which are entirely nonspecific however may be seen in the setting of chronic migraine headaches or other etiology. No posterior fossa lesions. No abnormal intraparenchymal or leptomeningeal enhancement. No significant mass effect or herniation pattern. The intracranial dural venous sinus and arterial flow voids are preserved. Normal appearance of the midline structures. The orbits are grossly unremarkable. Leftward nasal septal deviation with a prominent leftward bony spur impinging upon the left inferior nasal turbinate. Mild patchy ethmoid air cell mucosal disease with some aerated secretions in the posterior left ethmoid air cell. No mastoid effusion. Normal marrow signal. A few scattered subcutaneous nodules may reflect trichilemmal or sebaceous cysts. MR/MR head/brain wo/w con IMPRESSION: Nonspecific mild burden of supratentorial white matter disease as above with predilection for the frontal lobes, which may be seen in the setting of chronic migraine headaches. Leftward nasal septal deviation with a prominent leftward bony spur impinging upon the left inferior nasal turbinate. Otherwise normal brain MRI. No pathologic intracranial enhancement.
[2023-11-23] MEDS: gadobutroL 10 ML VIAL IVPUSH (08:20)
== END 2023-11-23 07:35 | disposition home or self-care (01) ==
LOC: HO.MRI 07:34
PROVIDERS: PCP Internal Medicine; Visit Provider Nurse Practitioner Family
DX: R51.9 Headache, unspecified (principal); H02.403 Unspecified ptosis of bilateral eyelids; H53.2 Diplopia; F09 Unspecified mental disorder due to known physiological condition
CPT/HCPCS: 70553; A9585

== ENCOUNTER 2023-11-29 12:00 | Outpatient (RCR) | payer OTHER, SELFPAY ==
--- NOTE | 2023-11-01 13:13 | MHC.PT.EP ---
[facility] [place] Office [place] Office [place] Office [address] Valeriano Olson [address] [phone] F: [phone] F: [phone] F: [phone] F: [phone] Physical Therapy Plan of Care Date of Evaluation: 11/01/23 Date of Surgery: Diagnosis: Sprain of L foot Assessment: Pt is a 38yo female who presents 1 month s/p L ankle sprain, no longer wearing walking boot. Eval findings significant for impaired strength and ROM, abnormal gait and balance, fear of falling again. Skilled PT indicated to reduce pain/edema, promote full ROM and flexibility, teach HEP for self management of symptoms, training to normalize gait and balance to prevent reinjury. Pt is motivated to participate in PT and in agreement with POC. Frequency and Duration: The patient will be seen 1-2x/week, x 4 weeks Short Term Goals: 1. In 2 weeks, improve DF AROM to 5 degrees past neutral. 2. In 2 weeks, I with daily gastroc/soleus stretching and AROM exercises daily. 3. In 2 weeks, patient will be able to ambulate with heel/toe progression without early heel rise. Finance Vice President Goals: 1. In 4 weeks, patient will be able climb and descend stairs with reciprocal pattern with no increased pain. 2. In 4 weeks, patient will regain proprioception L ankle to be able to stand on wobble board while completing ball throwing activity without LOB. 3. In 4 weeks, patient will be able to complete squat to retrieve object from floor. Treatment Plan: Modalities to reduce pain, spasms and effusion. Manual therapy to restore motion and function. Therapeutic exercise to improve strength and flexibility. Neuromuscular re-education for posture and balance. Therapeutic activities to return to functional activities of daily living. Electronically signed by: Rylee Diaz PT, DPT Please sign and return to therapist. Thank you for your referral.
--- NOTE | 2024-08-28 11:39 | MHC.PT.DC ---
[facility] [place] [facility] [place] [facility] [place] [facility] [address] Valeriano Olson [address] [phone] F: [phone] F: [phone] F: [phone] F: [phone] Physical Therapy Discharge Report Diagnosis: Sprain of L foot Date of Surgery: Date of Evaluation: 11/01/23 Date of Discharge: 12/25/23 Treatments to Date: 5 Cancellations to Date: No Shows to Date: Discharge Status: Achieved Goals Improved Function Independent with HEP Discharge Summary: Pt is a 38yo female who presents 1 month s/p L ankle sprain, no longer wearing walking boot. Eval findings significant for impaired strength and ROM, abnormal gait and balance, fear of falling again. Skilled PT indicated to reduce pain/edema, promote full ROM and flexibility, teach HEP for self management of symptoms, training to normalize gait and balance to prevent reinjury. Pt is motivated to participate in PT and in agreement with POC. Pt participated in 5 treatment sessions, improved pain level to 0/10, L ankle MMT 5/5, DF ROM improved to WFL, no pain walking up and down the stairs, I with HEP. D/C at this time to HEP. Thankyou for this referral. Electronically signed by: Rylee Diaz PT, DPT Please sign and return to therapist. Thank you for your referral.
== END 2024-08-28 11:30 | disposition home or self-care (01) ==
LOC: HO.PT 12:00
PROVIDERS: PCP Internal Medicine; Visit Provider Physician Assistant
DX: S93.602D Unspecified sprain of left foot, subsequent encounter (principal)
CPT/HCPCS: 97110; 97112; 97116; 97161; 97530

== ENCOUNTER 2023-12-12 08:08 | Outpatient (AMB) | payer OTHER, SELFPAY ==
--- NOTE | 2023-12-12 08:09 | MHC.OFFVIS ---
Intake Vital Signs 12/12/23 08:10 Height 5 ft 7 in Weight 252 lb 13.923 oz BMI 39.6 BP 134/86 Blood Pressure Location Lt brachial Position Sitting Pulse 80 Pulse Source Pulse Oximeter Temp 97.9 F Temp Source Skin Pulse Oximetry (%) 98 Oxygen Delivery Method Room Air Intake Visit Reasons: FMS Intake Note: Pt presents today for fibro follow up. [employer] Professor Required: No Accompanied by: Self / Same As Patient Allergies No Known Allergies Allergy (Verified 12/12/23 08:09) Medication List - Last Reconciled 12/12/23 by Bridgett Bang MD ergocalciferol (vitamin D2) 1,250 mcg PO QWEEK ferrous sulfate 325 mg PO DAILY ibuprofen 800 mg PO TID PRN magnesium oxide 400 mg PO BEDTIME 30 days ondansetron 4 - 8 mg (1 - 2 x 4 mg) PO Q6-8H PRN 30 days MDD 4 tabs riboflavin (vitamin B2) 400 mg PO DAILY 30 days sumatriptan succinate 50 - 100 mg orally at onset of headache, may repeat in 2 hrs PRN; max 2 tabs per day or 4 tabs/week (may take with Naproxen) 30 days HPI HPI Comments History of Present Illness Details 38-year-old female with fibromyalgia returns for follow-up. She states that she is doing about the same overall in terms of her aches and pains. Recently she has been having mild right index pain at the MCP and PIP. Denies significant swelling, sometimes stiff. She took Tylenol 2 times without significant relief. She usually rests it when it flares up. Denies any triggering. She states that was recently evaluated by neurologist and prescribed sumatriptan for migraines. Was also prescribed a sleep study. She continues to have multiple stressors in her personal life. She states that she used to see a therapist once weekly regularly for about a year and she stopped doing it 3 months ago. States that it was helpful. She has not been evaluated by psychiatrist. Initial history: This is a 37-year-old female who presents for evaluation of diffuse pain. The condition started over the last year. She stated that she has had aches and pains for a long period of time but recently they have become worse. She had some stressors in her life recently that she believes contributed to her symptoms. The majority of her pain is in her arm, upper back, neck. Intermittently she gets an electric shock-like sensation in her elbows, with certain positions. Patient sometimes sleeps 8 hours at night but wakes up fatigued. Sometimes she gets the urge to move her legs. She denies any swollen joints. She is unaware of any family history of an autoimmune rheumatic disease. [facility] Medical History Acute allergic rhinitis Iron deficiency anemia, unspecified PCOS (polycystic ovarian syndrome) Impaired glucose tolerance Prediabetes Obesity Goiter Vitamin D deficiency History of abnormal cervical Pap smear Irregular menses Hirsutism Surgical History Hx of eye surgery Hx of tubal ligation Family History Father Type 2 diabetes mellitus Hypertension COPD (chronic obstructive pulmonary disease) Mother Type 2 diabetes mellitus Maternal Grandmother Type 2 diabetes mellitus Heart disease Breast cancer Paternal Grandmother Alzheimer's dementia Social History Household Members: Significant Other and Children Alcohol intake: current Alcohol intake frequency: a few times a month Patient Tobacco Use Status: Never used Tobacco Current occupational status: employed 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 Review of Systems Const Reports fatigue and Reports headache(s) ENT Reports headache(s) Musc Reports arthralgias, Denies joint swelling and Reports stiffness Neuro Reports headache(s) Psych Reports depression Endo Reports fatigue Physical Exam Vital Signs: Last Vital Signs Temp 97.9 F 12/12/23 08:10 Pulse 80 12/12/23 08:10 BP 134/86 12/12/23 08:10 Pulse Ox 98 12/12/23 08:10 Oxygen Delivery Method Room Air 12/12/23 08:10 BMI result Body Mass Index 39.6 Const General: cooperative, healthy appearing and comfortable Nutritional Appearance: obese Orientation/consciousness: patient oriented x3 Limitations: no limitations HEENT Head: Yes normocephalic and Yes atraumatic Mouth: moist mucous membranes Resp Effort & Inspection: normal respiratory effort and able to speak in complete sentences Auscultation: clear to auscultation bilaterally Neuro General: patient oriented x3 Extrem Other: No fibromyalgia tender points today Normal nailfold capillaroscopy Normal range of motion of hands, fingers, wrists, elbows and shoulders without pain Right 2nd MCP tenderness Right 1st flexor tendon tenderness No triggering today Negative straight leg raise test Results Reviewed Results Reviewed: Labs 06/2023 RF/MARIYA negative ESR 10 Lyme screen negative Assessment & Plan Assessment & Plan (1) Fibromyalgia, primary: Code(s): M79.7 - Fibromyalgia Plan: This is a 38-year-old female with fibromyalgia presents for follow-up. Patient is currently undergoing assessment by Neurology and sleep Medicine. Multiple studies and labs were ordered. Advised patient to try to focus on getting all the workup completed. She is also scheduled for sleep study. I suggested going back to her therapist. Follow-up six-months (2) Finger pain, right: Code(s): M79.644 - Pain in right finger(s) Plan: Likely mechanical/osteoarthritic in nature. Voltaren gel trial. Plan I spent 16 minutes reviewing patient's chart, evaluating patient, counseling patient and documenting in the chart Medications: New diclofenac sodium 1% (Voltaren Arthritis Pain) apply to affected joints 2 grams topical QID 100 grams 0RF Coding Level of Care Code Est Pt Level 3 (85982) Diagnoses Fibromyalgia, primary M79.7 Finger pain, right M79.644
[2023-12-12 08:10] VITALS: BP 134/86; PULSE 80; TEMP 36.6; O2SAT 98; BMI 39.6
== END 2023-12-12 09:46 | disposition home or self-care (01) ==
LOC: HO.RHE 08:08
PROVIDERS: PCP Internal Medicine; Visit Provider Student in an Organized Health Care Education/Training Program
DX: M79.7 Fibromyalgia (principal); M79.644 Pain in right finger(s)
CPT/HCPCS: 99213

== ENCOUNTER → 2023-12-12 08:08 | Outpatient (BNVA) | payer OTHER, SELFPAY | PROVIDERS: PCP Internal Medicine; Visit Provider Student in an Organized Health Care Education/Training Program ==

== ENCOUNTER → 2023-12-14 15:09 | Outpatient (REF) | payer OTHER, SELFPAY | LOC: HO.SL 15:09 | PROVIDERS: Visit Provider Nurse Practitioner Family | DX: G47.19 Other hypersomnia (principal); G47.9 Sleep disorder, unspecified; R06.83 Snoring; G47.33 Obstructive sleep apnea (adult) (pediatric) | CPT/HCPCS: 95806 ==

== ENCOUNTER → 2023-12-14 15:18 | Outpatient (BNV) | payer OTHER, SELFPAY | PROVIDERS: Visit Provider Psychiatry & Neurology Neurology | DX: G47.33 Obstructive sleep apnea (adult) (pediatric) (principal) | CPT/HCPCS: 95806 ==